=== PATIENT | male | born 1945 | race Caucasian/White ===

== ENCOUNTER 2023-09-26 08:50 | Emergency (ER) | payer MEDICARE, SELFPAY ==
[2023-09-26 08:56] VITALS: BP 161/95
[2023-09-26 09:56] LABS: Urine Albumin Negative (Neg - Trace); Urine Bilirubin Negative (Negative); Urine Character Clear (Clear); Urine Color Yellow; Urine Glucose Negative (Negative); Urine Ketone Negative (Negative); Urine Leukocyte Negative (Negative); Urine Nitrite Negative (Negative); Urine Occult Blood Trace (Negative); Urine Specific Gravity 1.015 (<1.030); Urine Urobilinogen Negative (Neg - 1+)
--- NOTE | 2023-09-26 10:11 | ED.GENMED ---
History of Present Illness
<Javier Dockery Jr., PA-C - Last Filed: 09/26/23 14:25>
General
Chief Complaint: Urinary Symptoms
Source: patient and spouse
Exam Limitations: none
Time Seen by Provider: 09/26/23 09:04
Nursing documentation reviewed up to this point in time: agreed with
Travel History
Have you had any contact with someone who has COVID-19?: No
Do you have any symptoms of coronavirus? Fever > 100 degrees, chills, cough, shortness of breath, sore throat, loss of taste or smell, muscle aches, or headache?: No
History of Present Illness
History of Present Illness:
78-year-old male with past medical history of BPH anxiety presenting to the emergency department today with concerns of difficulty urinating this morning. Unable to void for multiple hours feels like he has to go has pressure but unable to void.
Does occasionally get this but never has had the complete inability to urinate never required a Kee in the past. Has drank some alcohol over the past few days due to visiting family does not typically drink. He is due to fly back to [place]
today where he lives. Denies any fevers or recent illnesses. No changes in medication does take alfuzosin
Review of Systems
<Javier Dockery Jr., PA-C - Last Filed: 09/26/23 14:25>
Review of Systems
Allergies reviewed?: Yes
All Other Systems: ROS reviewed and negative except as documented in HPI and ROS
Phy Exam
<Javier Dockery Jr., PA-C - Last Filed: 09/26/23 14:25>
Physical Exam
Physical Exam:
GENERAL: Alert , in no apparent distress
EYE: pupils equal and reactive
NECK: Supple, no significant adenopathy.
ENT: o/p clr, mmm.
CARDIAC: Regular rate and rhythm .
LUNGS: Clear breath sounds bilaterally, no acute respiratory distress, no wheezes/rales/rhonchi
ABDOMEN: Soft, without focal tenderness, no r/g, no cvat
NEUROLOGICAL: Alert and oriented, no focal neuro deficits
SKIN: Warm and dry, skin intact.
MUSCULOSKELETAL: No edema, well perfused.
PSYCH: Normal and appropriate interaction.
Course
<Javier Dockery Jr., PA-C - Last Filed: 09/26/23 14:25>
Orders/Labs/Results
Orders:
Orders
09/26/23 09:11
Lidocaine 2% [Lidocaine Uro-Jet 2%] 1 syringe .ROUTE .[facility]
09/26/23 09:36
Urinalysis Reflex To Culture Urgent
Date Specimen was Collected: 09/26/23
Time Specimen was Collected: 09:31
Urine Microscopic Reflex Cult Urgent
Abnormal Lab Results
09/26/23
09:36
Ur Occult Blood Reflex Trace A
(Negative)
Urine RBC 7-10 A /HPF
(0-2)
Vital Signs
Initial and Last Documented VS:
Initial Vital Signs
Temp Pulse Resp BP Pulse Ox
97.8 F 71 18 161/95 96
09/26/23 08:56 09/26/23 08:56 09/26/23 08:56 09/26/23 08:56 09/26/23 08:56
Last Documented Vital Signs
Temp Pulse Resp BP Pulse Ox
97.8 F 71 18 161/95 96
09/26/23 08:56 09/26/23 08:56 09/26/23 08:56 09/26/23 08:56 09/26/23 08:56
<Lewis López DO - Last Filed: 09/30/23 13:12>
Orders/Labs/Results
Orders:
Orders
09/26/23 09:11
Lidocaine 2% [Lidocaine Uro-Jet 2%] 1 syringe .ROUTE .[facility] ONE
09/26/23 09:36
Urinalysis Reflex To Culture Urgent
Date Specimen was Collected: 09/26/23
Time Specimen was Collected: 09:31
Urine Microscopic Reflex Cult Urgent
Abnormal Lab Results
09/26/23
09:36
Ur Occult Blood Reflex Trace A
(Negative)
Urine RBC 7-10 A /HPF
(0-2)
Vital Signs
Initial and Last Documented VS:
Initial Vital Signs
Temp Pulse Resp BP Pulse Ox
97.8 F 71 18 161/95 96
09/26/23 08:56 09/26/23 08:56 09/26/23 08:56 09/26/23 08:56 09/26/23 08:56
Last Documented Vital Signs
Temp Pulse Resp BP Pulse Ox
97.8 F 71 18 161/95 96
09/26/23 08:56 09/26/23 08:56 09/26/23 08:56 09/26/23 08:56 09/26/23 08:56
<Javier Dockery Jr., PA-C - Last Filed: 09/26/23 14:25>
MDM/Problems Addressed
MDM/Problems Addressed:
78-year-old male presenting to the emergency department today with concerns of difficulty urinating this morning does have a history of BPH has minor difficulty chronically but today was much worse than usual. Never required a Kee in the past.
Upon arrival here patient was able to urinate. Postvoid residual initially 80 then he urinated again and then had 35 cc. He did feel better at this time. Risk and benefits of placing a Kee at this point in the setting were discussed. He claims
that he opted for no Kee at this point but would return if any symptoms progressed. Urinalysis was assessed without evidence of urinary tract infection. Did have trace blood. He will follow-up with his urologist closely. Return precautions
given.
<Javier Dockery Jr., PA-C - Last Filed: 09/26/23 14:25>
*Critical Care Note
Total Time (30-74mins, 75-104mins- exclusive of procedures): Not Applicable
ED Attending Note
<Javier Dockery Jr., PA-C - Last Filed: 09/26/23 14:25>
-
Portions of this chart may have been created with voice recognition software.� Occasional wrong word or��sound alike� substitutions may have occurred due to the inherent limitations of voice recognition software.
<Lewis López DO - Last Filed: 09/30/23 13:12>
ED Attending Note
I performed the substantive portion of visit, reviewed & personally made and approve the management plan that is documented in note by myself or PEGGY.: Yes
Discharge Plan
Departure
Patient Disposition: Home (Routine Discharge)
Date of Disposition: 09/26/23
Time of Disposition: 10:52
Patient with high blood pressure during this ER visit?: No
Condition: Good
Covid-19: Not Applicable
Discharge Problem:
Urinary retention
Instructions: Urinary retention
Referrals:
PRIVATE,PHYSICIAN [Family Provider] -
Stand Alone Forms: Return to Work
Activity Restrictions/Additional Instructions:
You came to the emergency department today with concerns of urinary retention. Here you are able to void. He also had a small amount of red blood cells in your urine please follow closely with your urologist for this. Otherwise please monitor
yourself closely over the next 24 hours and return for any evidence of worsening hypertension to get a Kee catheter. Return otherwise for any worsening, new or concerning symptoms.
Interventions
Interventions:
*General Assessment Last Done: 09/26/23 11:02
*ED COVID-19 Vaccine History Last Done: 09/26/23 08:56
*Nursing Disposition Last Done: 09/26/23 11:02
ED-Male Genitourinary Assessment Last Done: 09/26/23 09:36
Discharge Date and Time
Discharge Date/Time: 09/26/23 11:03
Print Language: ICELANDIC
[2023-09-26 10:27] LABS: Urine Squamous Cell 0-2 /LPF (Few)
== END 2023-09-26 11:03 | disposition home or self-care (01) ==
LOC: EMR 08:50
PROVIDERS: Physician Assistant; EMERGENCY PHYSICIAN Emergency Medicine
DX: N40.1 Benign prostatic hyperplasia with lower urinary tract symptoms (principal); R33.8 Other retention of urine; F41.9 Anxiety disorder, unspecified; E78.5 Hyperlipidemia, unspecified; Z98.1 Arthrodesis status; Z88.0 Allergy status to penicillin; Z88.8 Allergy status to other drugs, medicaments and biological substances
CPT/HCPCS: 99283; 51798 ×2; 81003; 81015